=== PATIENT | male | born 1960 | race Caucasian/White ===

== ENCOUNTER 2023-11-21 12:41 | Outpatient (AMB) | payer OTHER, SELFPAY ==
--- NOTE | 2023-11-21 12:55 | HO.SPINEOV ---
Intake Visit Reasons: disc degeneration lumbar Intake Note: Mr. Zhou is here today c/o left sided lower back pain that radiates down to the legs making it difficult to walk. MRI done at [facility] [employer] Required: No Allergies No Known Allergies Allergy (Verified 11/21/23 12:56) Assessment & Plan Assessment & Plan (1) Lumbar radiculopathy: Code(s): M54.16 - Radiculopathy, lumbar region Category: Medical Plan Dear Dr Villa, Thank you for referring MR Zhou to our office today. He is a very nice 63-year-old gentleman presents to the office today for evaluation of pain in the left side of his low back going down to his left anterior thigh into his anterior tibial region with numbness in the top of his foot. The pain has been present for 1 year or more. He had a previous L4-5 diskectomy done a number of years ago done at [facility]. He believes it was in the year 1999. He did very well after that surgery. This particular pain feels different, and is particularly worse when he is bad walking and goes away when he sits. He underwent physical therapy to no avail. He takes 3 Motrin in the morning and 3 Motrin at night as well as Tylenol twice a day to help with the pain. He is spends most of his day sitting because the pain is so bad he can not stand for very long or walk long. He has not had any cortisone injections. Apparently he was supposed to go to the [facility] and have these done but he had a difficult interaction with their team and they were unable to do the injections for various reasons. He really just felt like there were not giving him any of their time. He came to see us today at the prompting of 1 of his friends who new somebody who is followed at our office. He had an MRI done at [facility] showing some mild degenerative changes at L4-5. PMH: History of bipolar disorder, left total hip replacement, L4-5 diskectomy, trigeminal nerve decompression, GERD, hypertension. Denies any heart attacks, strokes, bleeding disorders, kidney problems liver disorders her major abdominal surgeries. Social hx: He does not smoke, drink or use any recreational drugs Medications: Ray alar, benztropine, lisinopril, esomeprazole, BuSpar, hyoscyamine Allergies: None Physical exam: Awake alert oriented no acute distress, he has full strength of bilateral lower extremities with normal reflexes. ALAN testing negative, Gaenslen's test negative positive finger Valentina test. Imaging review: Lumbar MRI done at [facility] in October 2023 shows very mild degenerative changes throughout the lumbar spine. I believe there may be a laminotomy defect on the left at L4-5. There is no evidence of nerve compression seen on the imaging, which is also confirmed by the radiology reading report. It does not look any different than the MRI done in 2021 at [facility]. Impression: 63-year-old male presents for evaluation of a left-sided low back pain radiating to his buttock, into his anterior thigh and down his anterior tibial region. He has a history of a previous L4-5 diskectomy. He tells me that this pain feels different than the pain that he had at the time of that disc herniation. His imaging does not reveal any nerve compression. I am not sure what to make of this. Sometimes SI joint inflammation can cause an atypical radicular type presentation but he does not seem to have a response to any of the provocative measures. I am not sure if this is some transient radiculopathy related to scar tissue from his old surgical site or just a idiopathic radiculopathy without evidence of nerve compression. Either way, there is nothing for us to fix surgically. I would like him to see Dr. Marshall. I am wondering if maybe there is some role for medication trials such as Lyrica or gabapentin, and/or possibly a role for therapeutic cortisone injections such as an epidural. I will defer this to his judgment. Thank you for allowing us to care for your patient. The total time spent with this visit with this patient was 45 minutes reviewing history, physical exam, lumbar imaging review, and implementation of treatment plan or further diagnostic testing Mati Jarrell MD,PhD [facility] Orders: Referrals Physiatry Referral M54.16 - Radiculopathy, lumbar region Coding Level of Care Code New Pt Level 4 (79748) Diagnoses Lumbar radiculopathy M54.16
== END 2023-11-21 14:06 | disposition home or self-care (01) ==
PROVIDERS: PCP Internal Medicine; Referring Provider Internal Medicine; Visit Provider Physician Assistant
DX: M54.16 Radiculopathy, lumbar region (principal)
CPT/HCPCS: 99204

== ENCOUNTER → 2023-11-21 12:41 | Outpatient (BNVA) | payer OTHER, SELFPAY | PROVIDERS: PCP Internal Medicine; Referring Provider Internal Medicine; Visit Provider Physician Assistant ==